=== PATIENT | male | born 1985 | race Two or more races ===

== ENCOUNTER 2022-06-05 01:23 | Emergency (ER) | payer OTHER ==
[~2022-06-05] VITALS: Ht 179.1 cm; Wt 78.9 kg
== END 2022-06-05 04:19 | disposition home or self-care (01) ==
LOC: ER 01:23
DX: N34.2 Other urethritis (principal)

== ENCOUNTER 2024-03-05 01:26 | Emergency (ER) | payer OTHER ==
[~2024-03-05] VITALS: Ht 177.8 cm; Wt 81.6 kg
[2024-03-05] MEDS ORDERED: KETOROLAC TROMETHAMINE 10 MG TABLET PO STA (03:18)
[2024-03-05] MEDS ORDERED: KETO10TA2 PO (03:54)
[2024-03-05] MEDS ORDERED: CEPHALEXIN500 MG PO (03:57)
== END 2024-03-05 04:05 ==
LOC: ER 01:26
DX: M79.675 Pain in left toe(s) (principal)